=== PATIENT | male | born 1980 | race Caucasian/White ===

== ENCOUNTER 2019-03-25 03:20 | Outpatient (CLI) | payer SELFPAY | END 2019-03-25 03:21 | disposition critical access hospital (66) | LOC: EMS 03:20 | PROVIDERS: ATTEND Surgery | DX: R45.89 Other symptoms and signs involving emotional state (principal) | CPT/HCPCS: A0425; A0429 ==

== ENCOUNTER 2019-03-25 03:52 | Emergency (ER) | payer SELFPAY ==
--- NOTE | 2019-03-25 04:15 | ED Physician Documentation ---
PD HPI MHE - Stated complaint Stated Complaint: ETOH/EMOTIONAL - Chief complaint Chief Complaint: MHE - History obtained from History obtained from: Patient, EMS - History of Present Illness Primary symptom: Suicidal ideation, Depression Recently seen: Not recently seen - Additional information Additional information: BIBA for reported SI. medic reports that they arrived to a womans residence where they found patient on the bed vomiting. the woman had called 911 because patient had reportedly made suicidal statements to her. patient denies suicidal thoughts or intent, but he frequently cries during HPI, limiting HPI/ROS. He says he is upset due to the mother of my kids earlier this year Review of Systems Constitutional: reports: Reviewed and negative Cardiac: reports: Reviewed and negative Respiratory: reports: Reviewed and negative GI: reports: Reviewed and negative Psychiatric: denies: Suicidal, Homicidal, Hallucinations, Delusions PD PAST MEDICAL HISTORY - Past Medical History Past Medical History: No - Past Surgical History Past Surgical History: No - Allergies Allergies/Adverse Reactions: Allergies Allergy/AdvReac Type Severity Reaction Status Date / Time No Known Drug Allergies Allergy Verified 03/25/19 04:06 - Social History Does the pt smoke?: No Smoking Status: Never smoker Does the pt drink ETOH?: Yes Does the pt have substance abuse?: No - POLST Patient has POLST: No PD ED PE NORMAL - Vitals Vital signs reviewed: Yes - HEENT HEENT: Atraumatic, PERRL, EOMI, Moist mucous membranes - Cardiac Cardiac: RRR, No murmur - Respiratory Respiratory: No respiratory distress, Clear bilaterally - Abdomen Abdomen: Soft, Non tender Results - Vitals Vitals: Oxygen O2 Source Room air - Labs Labs: Laboratory Tests 03/25/19 03/25/19 03/25/19 05:25 05:25 07:26 WBC 6.5 RBC 5.01 Hgb 14.7 Hct 45.2 MCV 90.2 MCH 29.3 MCHC 32.5 RDW 13.5 Plt Count 246 MPV 10.4 Neut # (Auto) 5.3 Lymph # (Auto) 0.9 L [place] # (Auto) 0.2 Eos # (Auto) 0.0 Baso # (Auto) 0.0 Absolute Nucleated RBC 0.00 Nucleated RBC % 0.0 Sodium 141 Potassium 3.9 Chloride 105 Carbon Dioxide 23 Anion Gap 13.0 BUN 11 Creatinine 0.7 Estimated GFR (MDRD) 127 Glucose 124 H Calcium 8.9 Urine Color YELLOW Urine Clarity CLEAR Urine pH 6.5 Ur Specific [place] 1.010 Urine Protein NEGATIVE Urine Glucose (UA) NEGATIVE Urine Ketones NEGATIVE Urine Occult Blood NEGATIVE Urine Nitrite NEGATIVE Urine Bilirubin NEGATIVE Urine Urobilinogen 0.2 (NORMAL) Ur Leukocyte Esterase NEGATIVE Ur Microscopic Review NOT INDICATED Urine Culture Comments NOT INDICATED Salicylates < 6.0 Urine Opiates Screen NEGATIVE Ur Oxycodone Screen NEGATIVE Urine Methadone Screen NEGATIVE Ur Propoxyphene Screen NEGATIVE Acetaminophen < 10 L Ur Barbiturates Screen NEGATIVE Ur Tricyclics Screen NEGATIVE Ur Phencyclidine Scrn NEGATIVE Ur Amphetamine Screen NEGATIVE U Methamphetamines Scrn NEGATIVE U Benzodiazepines Scrn NEGATIVE Urine Cocaine Screen NEGATIVE U Cannabinoids Screen NEGATIVE Ethyl Alcohol 211.4 PD MEDICAL DECISION MAKING - ED course Complexity details: reviewed results, re-evaluated patient, considered differential, d/w patient ED course: held in ED overnight and care of patient turned over to Dr. Alcazar pending sobriety for reevaluation Departure - Departure Disposition: 01 Home, Self Care Clinical Impression: Alcohol use Condition: Good Instructions: ED Depression Follow-Up: Your,PCP [Other] (within one week) Comments: You were seen today for alcohol intoxication and for statements of self-harm. Avoid alcohol use and establish with the mental health provider soon as possible. If you have any suicidal thoughts or thoughts of harming yourself, return to the emergency department immediately. Please follow-up with your primary care provider soon as possible as well. Discharge Date/Time: 03/25/19 10:12
[2019-03-25 05:37] LABS: BASOPHILS % (AUTO) 0.3 %; EOSINOPHILS % (AUTO) 0.2 %; HGB - HEMOGLOBIN 14.7 g/dL (14.0-18.0); LYMPHOCYTES # (AUTO) 0.9 10^3/uL (1.5-3.5); LYMPHOCYTES % (AUTO) 14.3 %; MEAN CORPUSCULAR HEMOGLOBIN 29.3 pg (27.0-31.0); MEAN CORPUSCULAR HGB CONC 32.5 g/dL (32.0-36.0); MEAN CORPUSCULAR VOLUME 90.2 fL (80.0-94.0); MEAN PLATELET VOLUME 10.4 fL (7.4-11.4); MONOCYTES # (AUTO) 0.2 10^3/uL (0.0-1.0); MONOCYTES % (AUTO) 2.9 %; NEUTROPHILS # (AUTO) 5.3 10^3/uL (1.5-6.6); PLT - PLATELET COUNT 246 10^3/uL (130-450); RED BLOOD COUNT 5.01 10^6/uL (4.70-6.10); RED CELL DISTRIBUTION WIDTH 13.5 % (12.0-15.0); WHITE BLOOD COUNT 6.5 x10^3/uL (4.8-10.8)
[2019-03-25 05:53] LABS: ACETAMINOPHEN < 10 ug/mL (10-30); BUN - BLOOD UREA NITROGEN 11 mg/dL (6-20); CALCIUM 8.9 mg/dL (8.5-10.3); CARBON DIOXIDE - CO2 23 mmol/L (21-32); CHLORIDE 105 mmol/L (101-111); CREATININE 0.7 mg/dL (0.6-1.2); GFR - MDRD 127 (>89); GLUCOSE 124 mg/dL (70-100); SALICYLATE < 6.0 mg/dL; SODIUM 141 mmol/L (135-145)
[2019-03-25 07:40] VITALS: BP 108/78
[2019-03-25 07:43] LABS: BILIRUBIN,URINE NEGATIVE (NEGATIVE); GLUCOSE, URINE (UA) NEGATIVE (NEGATIVE); KETONES,URINE (UA) NEGATIVE (NEGATIVE); LEUKOCYTE ESTERASE, URINE NEGATIVE (NEGATIVE); MUDS CUTOFF CONCENTRATIONS CUTOFF CONC BELOW:; NITRITE,URINE NEGATIVE (NEGATIVE); OCCULT BLOOD,URINE NEGATIVE (NEGATIVE); PH,URINE 6.5 PH (5.0-7.5); PROTEIN,URINE NEGATIVE (NEGATIVE); UROBILINOGEN,URINE 0.2 (NORMAL) E.U./dL (NORMAL)
[2019-03-25 07:44] LABS: CLARITY,URINE CLEAR (CLEAR)
--- NOTE | 2019-03-25 07:49 | ED Physician Documentation ---
ED Addendum - Addendum Addendum: 38 M presents with alcohol intoxication and bystander report of SI. Patient went home with a female after drinking last night, and was drunk and vomiting and and EMS was called because of possible SI - patient stated "just kill me now". Patient has denied SI since arrival. Ethanol level is 211. Plan: -Re-evaluate when sober -Possible psych consult if any SI I reevaluated the patient at 9: 40, he is clinically sober, cooperative. He states that he drank too much last night, he does not remember what happened, but he denies any suicidal ideation. He has never had any suicide attempts. He states that he is still dealing with the trauma of his children's mother passing away recently, and that he would like to establish with an outpatient mental health provider/counselor. He is future oriented and has not had any suicidal ideation since his arrival. It is unclear if his statement of "kill me now" reported by the bystander was true suicidal ideation or just an expression of his discomfort after vomiting and being drunk. Patient would like to discharge, and I feel that he is safe to do so. I counseled him on avoiding alcohol, provided him resources in order to establish with a mental health provider, and explained that he can return to emergency department at any point, and that he should call 911 and return to the emergency department immediately if he is having suicidal ideation. Patient agrees with plan and was discharged 03/25/19 07:45 03/25/19 09:55
[2019-03-25 07:53] LABS: AMPHETAMINE SCREEN,URINE NEGATIVE (NEGATIVE); BENZODIAZEPINES SCREEN, URINE NEGATIVE (NEGATIVE); COCAINE SCREEN URINE NEGATIVE (NEGATIVE); METHADONE SCREEN, URINE NEGATIVE (NEGATIVE); METHAMPHETAMINES SCREEN, URINE NEGATIVE (NEGATIVE); OPIATE SCREEN, URINE NEGATIVE (NEGATIVE); OXYCODONE SCREEN, URINE NEGATIVE (NEGATIVE); PROPOXYPHENE SCREEN, URINE NEGATIVE (NEGATIVE); TRICYCLIC ANTIDEPRESSANT,URINE NEGATIVE (NEGATIVE)
== END 2019-03-25 10:12 | disposition home or self-care (01) ==
LOC: EDUNIT# → ED 03:52
DX: F10.129 Alcohol abuse with intoxication, unspecified (principal)
CPT/HCPCS: 36415; 80048; 80306; 80307; 80320; 80329; 81001; 81003; 85025; 87086; 99283

== ENCOUNTER 2021-05-18 16:45 | Outpatient (CLI) | payer SELFPAY | END 2021-05-18 16:46 | disposition home or self-care (01) | LOC: COV 16:45 | PROVIDERS: ATTEND Family Medicine | DX: Z20.822 Contact with and (suspected) exposure to COVID-19 (principal) ==